=== PATIENT | female | born 1980 | race Two or more races ===

== ENCOUNTER 2017-12-09 20:30 | Emergency (ER) | payer MEDICAID ==
[~2017-12-09] VITALS: Ht 165.1 cm; Wt 65.8 kg
[2017-12-09 20:52] VITALS: BP 128/80
[2017-12-10] MEDS ORDERED: IBUPROFEN 600 MG TAB PO ONE (01:00)
[2017-12-10] MEDS ORDERED: cefTRIAXone SOD 1,000 MG VL IM ONE (01:00)
== END 2017-12-10 01:46 | disposition home or self-care (01) ==
LOC: ER 20:30
DX: N61.1 Abscess of the breast and nipple (principal)
CPT/HCPCS: 96372; 99283; J0696

== ENCOUNTER 2021-03-22 10:09 | Emergency (ER) | payer MEDICAID, OTHER ==
[~2021-03-22] VITALS: Ht 162.6 cm; Wt 65.8 kg
[2021-03-22 10:59] VITALS: BP 137/86
[2021-03-22] MEDS ORDERED: IBUPROFEN 800 MG TAB PO ONE (11:00)
== END 2021-03-22 11:47 | disposition home or self-care (01) ==
LOC: ER 10:09 → EDBD 10:09 → ER 11:40
DX: S16.1XXA Strain of muscle, fascia and tendon at neck level, initial encounter (principal); V43.52XA Car driver injured in collision with other type car in traffic accident, initial encounter; Y93.89 Activity, other specified; Y92.410 Unspecified street and highway as the place of occurrence of the external cause; Y99.8 Other external cause status
CPT/HCPCS: 72040